=== PATIENT | male | born 1965 | race Caucasian/White ===

== ENCOUNTER 2017-03-11 17:57 | Emergency (ER) | payer MEDICAID ==
[~2017-03-11] VITALS: Ht 180.3 cm; Wt 86.2 kg
--- NOTE | 2017-03-11 18:00 | NUR ---
PATIENT TO ED DT C/O CP, 10/05, ACHING SINCE YESTERDAY 1PM, PATIENT ALSO CO GENERALIZED BODY PAIN. VSS
[2017-03-11] MEDS ORDERED: KETOROLAC TROMETHAMINE 15 MG/ML VIAL ONE (18:13)
[2017-03-11 18:27] LABS: BASOPHILS # (AUTO) 0.1 /CMM (0.0-0.2); BASOPHILS % (AUTO) 1.1 % (0.0-2.0); HEMATOCRIT 48 % (39-51); HEMOGLOBIN 16.1 g/dL (13.5-17.5); LYMPHOCYTES # (AUTO) 1.3 /CMM (0.8-4.8); LYMPHOCYTES % (AUTO) 11.6 % (20.0-44.0); MEAN CORPUSCULAR HEMOGLOBIN 31 PG (26.0-33.0); MEAN CORPUSCULAR HGB CONC 34 g/dl (31.0-36.0); MEAN CORPUSCULAR VOLUME 92 fL (80-96); MONOCYTES # (AUTO) 0.6 /CMM (0.1-1.30); NEUTROPHILS # (AUTO) 9.2 /CMM (1.8-8.9); NEUTROPHILS % (AUTO) 82.3 % (43.0-81.0); PLATELET COUNT (AUTO) 219 /CMM (150-450); RDW COEFFICIENT OF VARIATION 12.3 (11.5-15.0); RED BLOOD CELL COUNT(AUTO) 5.23 MIL/uL (4.5-6.0); WHITE BLOOD COUNT (AUTO) 11.3 K/uL (4.3-11.0)
[2017-03-11 18:29] LABS: CALCIUM, SERUM 9.2 mg/dL (8.5-10.1); CARBON DIOXIDE 24 mmol/L (21-32); CHLORIDE 98 mmol/L (98-107); CREATININE 1.1 mg/dL (0.6-1.3); GLUCOSE 145 mg/dL (74-106); POTASSIUM 3.9 mmol/L (3.5-5.1); SODIUM SERUM 133 mmol/L (136-145); UREA NITROGEN, BLOOD 10 mg/dL (7-18)
[2017-03-11] MEDS ORDERED: KETOROLAC TROMETHAMINE INJ 30 MG/ML VIAL IV ONE (18:30)
[2017-03-11] MEDS ORDERED: IV NS 0.9% 500 ML BAG IV ONE (18:30)
[2017-03-11 18:38] LABS: TROPONIN I < 0.017 ng/mL (0.00-0.056)
--- NOTE | 2017-03-11 19:13 | NUR ---
REPORT GIVEN TO MARYAN HORN FOR KRISTAL
[2017-03-11] MEDS ORDERED: OSELTAMIVIR PHOSPHATE 75 MG CAPSULE ONE (19:27)
[2017-03-11] MEDS ORDERED: OSELTAMIVIR PHOSPHATE 75 MG CAPSULE PO ONE (19:30)
--- NOTE | 2017-03-11 19:35 | NUR ---
IV removed. Catheter intact and site benign. Pressure and 4x4 applied to site. No bleeding noted.Patient discharged to home in stable condition. Written and verbal after care instructions given. Patient verbalizes understanding of instruction.
[2017-03-11 19:36] VITALS: BP 149/89
[2017-03-11 19:50] LABS: BAND % (MANUAL) 12 % (0.0-5.0); LYMPHOCYTES % (MANUAL) 22 % (16-48); MONOCYTES % (MANUAL) 4 % (0-11.0); NEUTROPHILS % (MANUAL) 62 (42-76)
== END 2017-03-11 19:36 | disposition home or self-care (01) ==
LOC: ER 18:03
DX: J11.1 Influenza due to unidentified influenza virus with other respiratory manifestations (principal); M79.1 Myalgia; F17.210 Nicotine dependence, cigarettes, uncomplicated
CPT/HCPCS: 36415; 71010; 80048; 84484; 85025; 93005; 96361; 96374; 99285; 99406; A4606; J1885; J7040; Z7610

== ENCOUNTER 2018-06-21 22:15 | Emergency (ER) | payer MEDICAID ==
[~2018-06-21] VITALS: Ht 180.3 cm; Wt 86.2 kg
--- NOTE | 2018-06-21 22:26 | NUR ---
PT BIBS. C/O HAVING "CP FOR 2 WEEKS RADIATING TOWARD L ARM AND HAND" +SOB -N/V -DIZZINESS. AOX4. AMBULATORY W.STEADY GAIT.
[2018-06-21 22:39] VITALS: BP 144/83
--- NOTE | 2018-06-21 22:40 | NUR ---
BLOOD DRAWN AND GIVEN TO LAB
--- NOTE | 2018-06-21 22:41 | NUR ---
TECH AT BEDSIDE FOR EKG
[2018-06-21 22:46] LABS: BASOPHILS # (AUTO) 0.1 /CMM (0.0-0.2); BASOPHILS % (AUTO) 1.3 % (0.0-2.0); EOSINOPHILS % (AUTO) 0.7 % (0.0-6.0); HEMATOCRIT 45 % (39-51); HEMOGLOBIN 15.1 g/dL (13.5-17.5); LYMPHOCYTES # (AUTO) 2.3 /CMM (0.8-4.8); LYMPHOCYTES % (AUTO) 40.9 % (20.0-44.0); MEAN CORPUSCULAR HGB CONC 34 g/dl (31.0-36.0); MEAN CORPUSCULAR VOLUME 95 fL (80-96); MONOCYTES # (AUTO) 0.4 /CMM (0.1-1.30); MONOCYTES % (AUTO) 7.7 % (2.0-12.0); NEUTROPHILS # (AUTO) 2.8 /CMM (1.8-8.9); NEUTROPHILS % (AUTO) 49.4 % (43.0-81.0); PLATELET COUNT (AUTO) 234 /CMM (150-450); RED BLOOD CELL COUNT(AUTO) 4.76 MIL/uL (4.5-6.0); WHITE BLOOD COUNT (AUTO) 5.6 K/uL (4.3-11.0)
[2018-06-21 23:14] LABS: CALCIUM, SERUM 8.3 mg/dL (8.5-10.1); CARBON DIOXIDE 24 mmol/L (21-32); CHLORIDE 107 mmol/L (98-107); CREATININE 1.2 mg/dL (0.6-1.3); GLUCOSE 181 mg/dL (74-106); POTASSIUM 3.8 mmol/L (3.5-5.1); SODIUM SERUM 140 mmol/L (136-145); UREA NITROGEN, BLOOD 22 mg/dL (7-18)
[2018-06-21 23:27] LABS: B-TYPE NATRIURETIC PEPTIDE 49 PG/ML (0-125)
[2018-06-21 23:40] LABS: ALBUMIN 3.5 g/dL (3.4-5.0); BILIRUBIN,DIRECT 0.1 mg/dL (0.0-0.2); BILIRUBIN,TOTAL 0.1 mg/dL (0.2-1.0); TOTAL PROTEIN, SERUM 7.4 g/dL (6.4-8.2)
[2018-06-22] MEDS ORDERED: ASPIRIN EC 325 MG TABLET.DR PO ONE (00:30)
== END 2018-06-22 01:48 | disposition left against medical advice (07) ==
LOC: ER 22:18
DX: R07.2 Precordial pain (principal); F10.129 Alcohol abuse with intoxication, unspecified; F17.200 Nicotine dependence, unspecified, uncomplicated; F32.9 Major depressive disorder, single episode, unspecified; F41.9 Anxiety disorder, unspecified; R00.0 Tachycardia, unspecified; Y90.6 Blood alcohol level of 120-199 mg/100 ml; Z98.890 Other specified postprocedural states
CPT/HCPCS: 36415; 71045; 80048; 80076; 80307; 83690; 83880; 84484; 85025; 85730; 87081; 93005 ×2; 99284; A4606; G0480

== ENCOUNTER 2024-05-02 18:03 | Emergency (ER) | payer MEDICAID ==
[~2024-05-02] VITALS: Ht 175.3 cm; Wt 90.7 kg
[~2024-05-02 18:03] MED LIST: METF-440 PO
[2024-05-02 18:58] LABS: BASOPHILS # (AUTO) 0.1 K/uL (0.0-0.2); BASOPHILS % (AUTO) 0.9 % (0.0-2.0); EOSINOPHILS # (AUTO) 0.2 K/uL (0.0-0.7); EOSINOPHILS % (AUTO) 2.8 % (0.0-6.0); HEMATOCRIT 45 % (39-51); HEMOGLOBIN 15.4 g/dL (13.5-17.5); LYMPHOCYTES # (AUTO) 2.8 K/uL (0.8-4.8); LYMPHOCYTES % (AUTO) 37.6 % (20.0-44.0); MEAN CORPUSCULAR HEMOGLOBIN 32 PG (26.0-33.0); MEAN CORPUSCULAR HGB CONC 34 g/dl (31.0-36.0); MEAN CORPUSCULAR VOLUME 92 fL (80-96); MONOCYTES # (AUTO) 0.7 K/uL (0.1-1.30); MONOCYTES % (AUTO) 9.4 % (2.0-12.0); NEUTROPHILS # (AUTO) 3.7 K/uL (1.8-8.9); NEUTROPHILS % (AUTO) 49.3 % (43.0-81.0); PLATELET COUNT (AUTO) 234 K/uL (150-450); RED BLOOD CELL COUNT(AUTO) 4.91 MIL/uL (4.5-6.0); RED CELL DISTRIBUTION WIDTH 12.8 % (11.5-15.0); WHITE BLOOD COUNT (AUTO) 7.5 K/uL (4.3-11.0)
[2024-05-02 20:31] LABS: ALANINE AMINOTRANSFERASE 23 U/L (12-78); ALKALINE PHOSPHATASE 101 U/L (46-116); ASPARTATE AMINOTRANSFERASE 8 U/L (15-37); BILIRUBIN,DIRECT 0.1 mg/dL (0.0-0.2); BILIRUBIN,TOTAL 0.2 mg/dL (0.2-1.0); CARBON DIOXIDE 24 mmol/L (21-32); CHLORIDE 103 mmol/L (98-107); CREATININE 1.3 mg/dL (0.6-1.3); GLUCOSE 238 mg/dL (74-106); NT-PRO BNP 31 pg/mL (0-125); POTASSIUM 3.2 mmol/L (3.5-5.1); SODIUM SERUM 139 mmol/L (136-145); UREA NITROGEN, BLOOD 14 mg/dL (7-18)
[2024-05-02 20:36] VITALS: BP 115/81; TEMP 98; O2SAT 98
[2024-05-02 20:52] LABS: CALCIUM, SERUM 9.7 mg/dL (8.5-10.1)
== END 2024-05-02 20:36 | disposition left against medical advice (07) ==
LOC: ER 18:03
DX: R07.9 Chest pain, unspecified (principal); M54.50 Low back pain, unspecified; R94.31 Abnormal electrocardiogram [ECG] [EKG]; E11.9 Type 2 diabetes mellitus without complications; F17.200 Nicotine dependence, unspecified, uncomplicated; F32.A Depression, unspecified; F41.9 Anxiety disorder, unspecified; Z79.84 Long term (current) use of oral hypoglycemic drugs; Z87.19 Personal history of other diseases of the digestive system
CPT/HCPCS: 36415; 71045-TC; 80048-TC; 80076-TC; 83880; 84484-TC; 85025-TC

== ENCOUNTER 2024-10-29 21:14 | Emergency (ER) | payer MEDICAID ==
[~2024-10-29] VITALS: Ht 172.7 cm; Wt 89.8 kg
[2024-10-29] MEDS ORDERED: ONDANSETRON HCL/PF 4 MG/2 ML VIAL ONE (21:33)
[2024-10-29] MEDS ORDERED: LIDOCAINE HCL/MPF 1% 30 ML VIAL IJ ONE (21:33)
[2024-10-29] MEDS ORDERED: TDAP [DIPH/PERTUSSIS/TET] 0.5 ML VIAL IM ONE (21:34)
[2024-10-29] MEDS: MORPHINE SULFATE INJ 2 MG/ML DISP.SYRIN IV ONE (21:34)
[2024-10-29] MEDS ORDERED: MORPHINE SULFATE INJ 4 MG/ML DISP.SYRIN ONE (21:34)
[2024-10-29] MEDS: ONDANSETRON HCL/PF 4 MG/2 ML VIAL IVP ONE (21:35)
[2024-10-29] MEDS: LIDOCAINE HCL/PF 1% 30 ML VIAL TP ONE (21:35)
[2024-10-29] MEDS ORDERED: AMOX-430 PO (21:41)
[2024-10-29] MEDS: TDAP [DIPH/PERTUSSIS/TET] 0.5 ML VIAL IM ONE (21:42)
[2024-10-29 21:45] LABS: PLATELET COUNT (AUTO) 266 K/uL (150-450); RED BLOOD CELL COUNT(AUTO) 5.00 MIL/uL (4.5-6.0); RED CELL DISTRIBUTION WIDTH 13.7 % (11.5-15.0); WHITE BLOOD COUNT (AUTO) 11.6 K/uL (4.3-11.0)
[2024-10-29] MEDS ORDERED: LORAZEPAM INJ 2 MG/ML VIAL ONE (21:45)
[2024-10-29] MEDS: LORAZEPAM INJ 2 MG/ML VIAL IV ONE (21:45)
[2024-10-29] MEDS: AMOX/CLAVULANATE 875 MG TABLET PO ONE (21:46)
[2024-10-29 21:54] LABS: CALCIUM, SERUM 9.0 mg/dL (8.5-10.1); CREATININE 1.5 mg/dL (0.6-1.3); SODIUM SERUM 143 mmol/L (136-145); UREA NITROGEN, BLOOD 10 mg/dL (7-18)
[2024-10-29] MEDS ORDERED: IBUP-1957 PO (22:43)
[2024-10-29] MEDS ORDERED: ACET-2605 PO (22:43)
[2024-10-29] MEDS ORDERED: HYDR-4303 PO (22:43)
[2024-10-30] MEDS: POTASSIUM CHLORIDE 20 MEQ TAB.PRT.SR PO ONE (00:16)
[2024-10-30] MEDS ORDERED: POTASSIUM CHLORIDE 20 MEQ TAB.PRT.SR PO ONE (00:16)
[2024-10-30] MEDS ORDERED: RABIES VACCINE (PCEC)/PF 1 EA KIT IM ONE (00:35)
[2024-10-30] MEDS: RABIES VACCINE (PCEC)/PF 1 EA KIT IM ONE (00:44)
[2024-10-30] MEDS: RABIES IMMUNE GLOBULIN/PF 150 UNIT/ML VIAL IM ONE (00:54)
[2024-10-30 01:50] VITALS: BP 110/66; TEMP 98.6; O2SAT 97
== END 2024-10-30 01:51 | disposition home or self-care (01) ==
LOC: ER 21:21
DX: S31.21XA Laceration without foreign body of penis, initial encounter (principal); S61.452A Open bite of left hand, initial encounter; S81.812A Laceration without foreign body, left lower leg, initial encounter; F41.9 Anxiety disorder, unspecified; F17.200 Nicotine dependence, unspecified, uncomplicated; E11.9 Type 2 diabetes mellitus without complications; Z79.84 Long term (current) use of oral hypoglycemic drugs; Z79.899 Other long term (current) drug therapy; Z98.890 Other specified postprocedural states; W54.0XXA Bitten by dog, initial encounter; Y93.89 Activity, other specified; Y92.89 Other specified places as the place of occurrence of the external cause; Y99.8 Other external cause status
CPT/HCPCS: 12004; 36415; 71045; 80048; 82962; 84484; 85025; 90375; 90471; 90472; 90675; 90715; 93005; 96372; 96374; 96375; 99285; J2060; J2270; J2405; J3490

== ENCOUNTER 2024-11-08 02:02 | Emergency (ER) | payer MEDICAID ==
[~2024-11-08] VITALS: Ht 172.7 cm; Wt 77.1 kg
[~2024-11-08 02:02] MED LIST changes: +ACET-2605 PO; +AMOX-430 PO; +HYDR-4303 PO; +IBUP-1957 PO
[2024-11-08 03:36] VITALS: BP 124/80; TEMP 97.8; O2SAT 99
== END 2024-11-08 03:36 | disposition home or self-care (01) ==
LOC: ER 02:09
DX: S31.21XD Laceration without foreign body of penis, subsequent encounter (principal); F17.200 Nicotine dependence, unspecified, uncomplicated; Z79.84 Long term (current) use of oral hypoglycemic drugs; Z98.890 Other specified postprocedural states; W54.0XXD Bitten by dog, subsequent encounter

== ENCOUNTER 2025-01-31 15:24 | Emergency (ER) | payer MEDICAID, OTHER ==
[~2025-01-31] VITALS: Ht 177.8 cm; Wt 88.5 kg
[2025-01-31 15:47] LABS: PLATELET COUNT (AUTO) 240 K/uL (150-450); RED BLOOD CELL COUNT(AUTO) 5.18 MIL/uL (4.5-6.0); RED CELL DISTRIBUTION WIDTH 13.5 % (11.5-15.0); WHITE BLOOD COUNT (AUTO) 6.9 K/uL (4.3-11.0)
[2025-01-31 15:54] LABS: CALCIUM, SERUM 9.0 mg/dL (8.5-10.1); CREATININE 0.9 mg/dL (0.6-1.3); SODIUM SERUM 139.0 mmol/L (136-145); UREA NITROGEN, BLOOD 9.0 mg/dL (7-18)
[2025-01-31 17:00] VITALS: TEMP 98.3
[2025-01-31] MEDS ORDERED: KETOROLAC TROMETHAMINE INJ 30 MG/ML VIAL ONE (17:44)
[2025-01-31] MEDS: KETOROLAC TROMETHAMINE INJ 30 MG/ML VIAL IV ONE (17:48)
[2025-01-31] MEDS ORDERED: ACETAMINOPHEN ES 500 MG TABLET ONE (18:38)
[2025-01-31] MEDS: ACETAMINOPHEN 325 MG TABLET PO ONE (18:48)
[2025-01-31] MEDS ORDERED: IBUP-1955 PO (19:29)
[2025-01-31] MEDS ORDERED: AZIT250T13 PO (19:29)
[2025-01-31 20:33] VITALS: BP 140/81; O2SAT 98
== END 2025-01-31 19:50 | disposition home or self-care (01) ==
LOC: ER 15:30
DX: J06.9 Acute upper respiratory infection, unspecified (principal); R51.9 Headache, unspecified; R07.89 Other chest pain; E11.9 Type 2 diabetes mellitus without complications; F17.200 Nicotine dependence, unspecified, uncomplicated; F32.A Depression, unspecified; F41.9 Anxiety disorder, unspecified; Z79.84 Long term (current) use of oral hypoglycemic drugs; Z87.19 Personal history of other diseases of the digestive system
CPT/HCPCS: 99285; 96374; 70450; 71045; 93005; 85025; 80048; 85378; 36415; 84484 ×2; J1885